=== PATIENT | female | born 1960 | race Caucasian/White ===

== ENCOUNTER 2024-10-14 10:40 | Emergency (ER) | payer MEDICARE, OTHER ==
[~2024-10-14] VITALS: Ht 182.9 cm; Wt 88.9 kg
[~2024-10-14 10:40] MED LIST: ALBU3IS INH; ASPI325 PO; HYDACE7.5 PO; HYDHOMSY PO; HYDR1TAB94 PO; LORA1 PO; METO25ER PO; METO50 PO; Monodox100 MG PO; OXYACE5T PO; PRED10 PO; SIMV40 PO; SIMVASTATIN PO
[2024-10-14 10:47] VITALS: BP 146/70
[2024-10-14] MEDS ORDERED: HYDROcodone 5-APAP 325 TAB PO ONE (10:50)
[2024-10-14] MEDS ORDERED: Norco 5-325 Ta1 EACH PO (11:14)
[2024-10-14] MEDS ORDERED: ULTRA-LIGHT RO1 EACH XX (11:24)
== END 2024-10-14 11:50 | disposition home or self-care (01) ==
LOC: ER 10:40
DX: S82.64XA Nondisplaced fracture of lateral malleolus of right fibula, initial encounter for closed fracture (principal); J44.9 Chronic obstructive pulmonary disease, unspecified; I11.0 Hypertensive heart disease with heart failure; I50.9 Heart failure, unspecified; F17.200 Nicotine dependence, unspecified, uncomplicated; Z79.82 Long term (current) use of aspirin; Z79.899 Other long term (current) drug therapy; Z59.89 Other problems related to housing and economic circumstances; W18.30XA Fall on same level, unspecified, initial encounter
CPT/HCPCS: 29515; 73610; 99283-25; A9270

== ENCOUNTER 2024-12-11 15:39 | Emergency (ER) | payer MEDICARE, OTHER ==
[~2024-12-11] VITALS: Ht 182.9 cm; Wt 88.9 kg
[~2024-12-11 15:39] MED LIST changes: +Norco 5-325 Ta1 EACH PO; +ULTRA-LIGHT RO1 EACH XX
[2024-12-11 16:04] VITALS: BP 150/84
[2024-12-11 16:55] LABS: BASOPHILS ABSOLUTE AUTO 0.08 K/mm3 (0.00-0.23); BASOPHILS PERCENT AUTO 1 % (0-2); EOSINOPHILS ABSOLUTE AUTO 0.14 K/mm3 (0.00-0.68); EOSINOPHILS PERCENT AUTO 1 % (0-6); Hematocrit 45.6 % (33.0-51.0); Hemoglobin 14.5 g/dL (11.5-16.0); IMMATURE GRAN ABSOLUTE AUTO 0.03 K/mm3 (0.00-0.10); IMMATURE GRAN PERCENT AUTO 0 % (0-1); LYMPHOCYTES ABSOLUTE AUTO 2.87 K/mm3 (0.84-5.20); LYMPHOCYTES PERCENT AUTO 24 % (21-46); MONOCYTES ABSOLUTE AUTO 0.64 K/mm3 (0.16-1.47); MONOCYTES PERCENT AUTO 5 % (4-13); Mean Corpuscular HGB Conc 31.8 g/dL (31.5-36.5); Mean Corpuscular Volume 88 fL (80-100); Mean Platelet Volume 11.4 fL (9.1-12.4); NEUTROPHILS ABSOLUTE AUTO 8.13 K/mm3 (1.96-9.15); NEUTROPHILS PERCENT AUTO 68 % (41-73); Platelet Count 191 K/mm3 (150-400); RDW Coefficient Variation 13.3 % (11.7-14.2); RDW Standard Deviation 43.1 fL (35.1-46.3); Red Blood Cell Count 5.17 M/mm3 (3.80-5.20); White Blood Cell Count 11.89 K/mm3 (4.00-11.30)
[2024-12-11 17:15] LABS: Albumin, Blood 3.9 g/dL (3.4-5.0); Albumin/Globulin Ratio 1.1 (0.8-1.8); Bilirubin, Total 0.3 mg/dL (0.1-1.0); Bun/Creatinine Ratio 18.6 (12.0-20.0); Calcium, Blood 9.5 mg/dL (8.5-10.1); Creatinine, Blood 0.59 mg/dL (0.40-1.00); Globulin, Blood 3.6 g/dL (2.2-4.0); Potassium, Blood 4.1 mmol/L (3.5-5.5); Total Protein, Blood 7.5 g/dL (6.4-8.2)
[2024-12-11] MEDS ORDERED: SULTRIDS PO (20:05)
[2024-12-11] MEDS ORDERED: CEPH500 PO (20:05)
[2024-12-11] MEDS ORDERED: Cephalexin Monohydrate 500 MG Cap PO ONE (20:10)
[2024-12-11] MEDS ORDERED: Trimethoprim/Sulfamethoxazole DS Tab PO ONE (20:10)
== END 2024-12-11 20:21 | disposition home or self-care (01) ==
LOC: ER 15:39
PROVIDERS: Student in an Organized Health Care Education/Training Program
DX: L02.415 Cutaneous abscess of right lower limb (principal); G62.9 Polyneuropathy, unspecified; J44.9 Chronic obstructive pulmonary disease, unspecified; F41.9 Anxiety disorder, unspecified; I11.0 Hypertensive heart disease with heart failure; I50.9 Heart failure, unspecified; Z79.899 Other long term (current) drug therapy
CPT/HCPCS: 10060; 80053; 85025; 99283-25; A9270